=== PATIENT | male | born 1930 | race Two or more races ===

== ENCOUNTER 2017-09-28 11:20 | Emergency (ER) | payer MEDICARE, OTHER ==
[~2017-09-28] VITALS: Ht 167.6 cm; Wt 75.9 kg
[~2017-09-28 11:20] MED LIST: ASPI-1009 PO; FOSI20TA3 PO; FURO40TA4 PO; GLIM4TAB79 PO; IBUP-24 PO; INSU100I4 SQ; INSU100I5 SQ; LOP25T PO; METF500T PO; OMEG1CAP46 PO; PRAV10TA38 PO; TRIA1CAP PO
[2017-09-28] MEDS ORDERED: acetaminophen 325mg tablet PO ONE (12:15)
[2017-09-28 12:27] VITALS: BP 144/82
== END 2017-09-28 12:27 | disposition home or self-care (01) ==
LOC: ER 11:20
DX: S61.412A Laceration without foreign body of left hand, initial encounter (principal); S00.93XA Contusion of unspecified part of head, initial encounter; Z88.5 Allergy status to narcotic agent; Z88.2 Allergy status to sulfonamides; Z79.899 Other long term (current) drug therapy; Z79.82 Long term (current) use of aspirin; W18.30XA Fall on same level, unspecified, initial encounter; Y93.89 Activity, other specified; Y92.89 Other specified places as the place of occurrence of the external cause; Y99.8 Other external cause status
CPT/HCPCS: 12001; 70450; 99284